=== PATIENT | male | born 1945 | race Caucasian/White ===

== ENCOUNTER 2025-05-27 14:58 | Inpatient (IN) | payer MEDICARE ==
[~2025-05-27] VITALS: Ht 172.7 cm; Wt 78.9 kg
[2025-05-27] MEDS: IV NS 0.9% 1,000 ML BAG IV ONE (15:30)
[2025-05-27 15:32] LABS: PLATELET COUNT (AUTO) 237 K/uL (150-450); RED BLOOD CELL COUNT(AUTO) 4.30 MIL/uL (4.5-6.0); RED CELL DISTRIBUTION WIDTH 15.0 % (11.5-15.0); WHITE BLOOD COUNT (AUTO) 13.4 K/uL (4.3-11.0)
[2025-05-27 15:42] LABS: CALCIUM, SERUM 8.0 mg/dL (8.5-10.1); CREATININE 1.2 mg/dL (0.6-1.3); SERUM AMMONIA 22 umol/L (11-32); SODIUM SERUM 124 mmol/L (136-145); UREA NITROGEN, BLOOD 12 mg/dL (7-18)
[2025-05-27 15:42] LABS: APPEARANCE,URINE CLEAR (CLEAR); BLOOD, URINE NEGATIVE Ery/uL (NEGATIVE); LEUKOCYTE ESTERASE ,URINE NEGATIVE (NEGATIVE); NITRITE, URINE NEGATIVE (NEGATIVE); UGLUCOSE NEGATIVE (NEGATIVE)
[2025-05-27] MEDS ORDERED: PANTOPRAZOLE 40 MG VIAL ONE (15:44)
[2025-05-27 15:47] LABS: ALCOHOL, BLOOD < 3 mg/dL (0-10); ASPARTATE AMINOTRANSFERASE 31 U/L (15-37); TOTAL PROTEIN, SERUM 6.5 g/dL (6.4-8.2)
[2025-05-27 15:48] LABS: INR 1.17 (0.91-1.10)
[2025-05-27 15:49] LABS: AMPHETAMINE, URINE NEGATIVE (NEGATIVE); BARBITURATE, URINE NEGATIVE (NEGATIVE); COCCAINE, URINE NEGATIVE (NEGATIVE); OPIATE, URINE NEGATIVE (NEGATIVE)
[2025-05-27] MEDS: PANTOPRAZOLE 40 MG VIAL IV ONE (15:49)
[2025-05-27 15:52] LABS: BENZODIAZEPINE, URINE POSITIVE (NEGATIVE); CANNABINOID, URINE POSITIVE (NEGATIVE)
[2025-05-27 16:12] LABS: ADD URINE CULTURE YES; SQUAMOUS EPITHELIAL CELL,UR 0-2 /HPF (None Seen)
[2025-05-27 16:23] LABS: BAND % (MANUAL) 1 % (0.0-5.0); LYMPHOCYTES % (MANUAL) 1 % (16-48); MONOCYTES % (MANUAL) 2 % (0-11.0); NEUTROPHILS % (MANUAL) 96 (42-76); PLATELET ESTIMATE ADEQUATE
[2025-05-27] MEDS ORDERED: MAG HYDROX/AL HYDROX/SIMETH 30 ML UDC PO PRN (21:00)
[2025-05-27] MEDS ORDERED: MAGNESIUM HYDROXIDE 30 ML UDC PO PRN (21:00)
[2025-05-27] MEDS ORDERED: ONDANSETRON HCL/PF 4 MG/2 ML VIAL IVP PRN (21:00)
[2025-05-27] MEDS ORDERED: Z GUARD REMEDY 4 OZ OINT TP PRN (21:00)
[2025-05-27 21:25] VITALS: BP 112/84; TEMP 97.9; O2SAT 100
[2025-05-27] MEDS: IV NS 0.9% 1,000 ML IV PRN (22:10)
[2025-05-27] MEDS: PANTOPRAZOLE 40 MG VIAL IV SCH (22:11)
[2025-05-27] MEDS: ALPRAZOLAM 0.5 MG TABLET PO PRN (23:59)
[2025-05-28] VITALS (9 sets, daily range): BP systolic 98–135; BP diastolic 70–92; TEMP 97.5–99.1; O2SAT 97–100
[2025-05-28] MEDS: Thiamine 100 MG in IV D5W 50 ML IV SCH (00:26)
[2025-05-28 07:24] LABS: PLATELET COUNT (AUTO) 173 K/uL (150-450); RED BLOOD CELL COUNT(AUTO) 3.84 MIL/uL (4.5-6.0); RED CELL DISTRIBUTION WIDTH 15.1 % (11.5-15.0); WHITE BLOOD COUNT (AUTO) 9.9 K/uL (4.3-11.0)
[2025-05-28 07:43] LABS: CALCIUM, SERUM 7.6 mg/dL (8.5-10.1); CREATININE 1.1 mg/dL (0.6-1.3); PHOSPHORUS 3.2 mg/dL (2.5-4.9); SODIUM SERUM 128.0 mmol/L (136-145); UREA NITROGEN, BLOOD 14.0 mg/dL (7-18)
[2025-05-28] MEDS ORDERED: ALPR0.255 PO (07:46)
[2025-05-28] MEDS ORDERED: FAMO40TA7 PO (07:46)
[2025-05-28] MEDS ORDERED: MELO-107 PO (07:46)
[2025-05-28] MEDS ORDERED: LOSA100T31 PO (07:46)
[2025-05-28] MEDS ORDERED: APIX5TAB PO (07:46)
[2025-05-28] MEDS: PANTOPRAZOLE 40 MG/PACK PACK PO SCH (08:02)
[2025-05-28 08:11] LABS: LDL 29.0 mg/dL (0-99)
[2025-05-28] MEDS: CHLORDIAZEPOXIDE HCL 25 MG CAPSULE PO SCH (11:48)
[2025-05-28] MEDS: APIXABAN 5 MG TABLET PO SCH (16:32)
[2025-05-28 17:22] LABS: IRON, SERUM 14.0 ug/dl (50-175)
[2025-05-29] VITALS: BP 111/80; TEMP 98.1; O2SAT 95
[2025-05-29] MEDS: CHLORDIAZEPOXIDE HCL 25 MG CAPSULE PO PRN (00:46)
[2025-05-29 04:00] VITALS: BP 123/85; TEMP 98.6; O2SAT 96
[2025-05-29] MEDS: ENOXAPARIN SODIUM 80 MG/0.8 ML DISP.SYRIN SQ SCH (05:18)
[2025-05-29 07:03] LABS: PLATELET COUNT (AUTO) 210 K/uL (150-450); RED BLOOD CELL COUNT(AUTO) 3.68 MIL/uL (4.5-6.0); RED CELL DISTRIBUTION WIDTH 15.3 % (11.5-15.0); WHITE BLOOD COUNT (AUTO) 7.8 K/uL (4.3-11.0)
[2025-05-29 07:12] LABS: CALCIUM, SERUM 7.7 mg/dL (8.5-10.1); CREATININE 0.9 mg/dL (0.6-1.3); FIBRINOGEN ACTIVITY 469.0 Mg/dL (213-485); INR 1.08 (0.91-1.10); PHOSPHORUS 2.9 mg/dL (2.5-4.9); SODIUM SERUM 128.0 mmol/L (136-145); UREA NITROGEN, BLOOD 13.0 mg/dL (7-18)
[2025-05-29 08:00] VITALS: BP 125/85; TEMP 99.9; O2SAT 96
[2025-05-29 08:09] LABS: IMMUNOGLOBULIN A, SERUM 168 mg/dL (61-437); IMMUNOGLOBULIN M, SERUM 68 mg/dL (15-143)
[2025-05-29 09:11] LABS: FREE KAPPA LT CHAINS SERUM 41.0 mg/L (3.3-19.4); FREE LAMBDA LT CHAIN SERUM 32.0 mg/L (5.7-26.3); KAPPA/LAMBDA RATIO SERUM 1.28 (0.26-1.65)
[2025-05-29] MEDS: ACETAMINOPHEN 325 MG TABLET PO PRN (09:29)
[2025-05-29] MEDS: ALPRAZOLAM 0.25 MG TABLET PO PRN (09:29)
[2025-05-29] MEDS: LOSARTAN POTASSIUM 50 MG TABLET PO SCH (09:30)
[2025-05-29 10:07] LABS: FOLIC ACID 12.2 ng/mL (>3.0)
[2025-05-29 11:08] LABS: AFP, TUMOR MARKER <1.8 ng/mL (0.0-8.4); CARBOHYDRATE AG 19-9 33 U/mL (0-35); CARCINOEMBRYONIC ANTIGEN (CEA) 2.3 ng/mL (0.0-4.7)
[2025-05-29] MEDS ORDERED: CT SWABBABLE VALVE TRANS SET 1 EA INFUS.SET MC ONE (11:31)
[2025-05-29] MEDS ORDERED: IOHEXOL-350 100 ML VIAL IV ONE (11:31)
[2025-05-29] MEDS ORDERED: IV NS 0.9% 250 ML IV ONE (11:31)
[2025-05-29] MEDS: SOD FERRIC GLUC 125 MG in IV NS 0.9% 100 ML IV SCH (15:11)
[2025-05-29 16:00] VITALS: BP 133/89; TEMP 98.1; O2SAT 100
[2025-05-29] MEDS: IV LR 500 ML IV PRN (17:47)
[2025-05-29 20:00] VITALS: BP 140/93; TEMP 98.6; O2SAT 97
[2025-05-29 20:05] VITALS: BP_SYST 135; BP_SYST 136; BP_SYST 140; BP_DIAS 85; BP_DIAS 88; BP_DIAS 93
[2025-05-29] MEDS: THIAMINE HCL 100 MG TABLET PO SCH (21:09)
[2025-05-30] VITALS (10 sets, daily range): BP systolic 123–156; BP diastolic 87–94; TEMP 98.2–99.9; O2SAT 95–100
[2025-05-30] MEDS ORDERED: MEROPENEM 500 MG in IV NS 0.9% 50 ML IV SCH (08:00)
[2025-05-30 08:11] LABS: *SPE A/G RATIO 0.9 (0.7-1.7); *SPE ALBUMIN 2.8 g/dL (2.9-4.4); *SPE ALPHA-1-GLOBULIN 0.5 g/dL (0.0-0.4); *SPE ALPHA-2-GLOBULIN 0.8 g/dL (0.4-1.0); *SPE BETA GLOBULIN 0.8 g/dL (0.7-1.3); *SPE GLOBULIN, TOTAL 3.1 g/dL (2.2-3.9); *SPE M-SPIKE Not Observed g/dL (Not Observed); *SPE PROTEIN TOTAL 5.9 g/dL (6.0-8.5); *SPEGAMMA GLOBULIN 1.0 g/dL (0.4-1.8)
[2025-05-30] MEDS: SODIUM CHLORIDE 1000 MG TABLET PO SCH (10:28)
[2025-05-30 17:58] LABS: PLATELET COUNT (AUTO) 268 K/uL (150-450); RED BLOOD CELL COUNT(AUTO) 4.09 MIL/uL (4.5-6.0); RED CELL DISTRIBUTION WIDTH 15.3 % (11.5-15.0); WHITE BLOOD COUNT (AUTO) 9.7 K/uL (4.3-11.0)
[2025-05-30 18:28] LABS: ASPARTATE AMINOTRANSFERASE 21.0 U/L (15-37); CALCIUM, SERUM 8.0 mg/dL (8.5-10.1); CREATININE 1.2 mg/dL (0.6-1.3); PHOSPHORUS 3.2 mg/dL (2.5-4.9); SODIUM SERUM 130.0 mmol/L (136-145); TOTAL PROTEIN, SERUM 5.9 g/dL (6.4-8.2); UREA NITROGEN, BLOOD 13.0 mg/dL (7-18)
[2025-05-30] MEDS ORDERED: MEROPENEM 1 G VIAL IV ONE (21:24)
[2025-05-30] MEDS: MEROPENEM 1 G in IV NS 0.9% 100 ML IV ONE (21:53)
[2025-05-30] MEDS ORDERED: IV LR 1,000 ML IV PRN (23:18)
[2025-05-30] MEDS: IV LR 1000 ML 1,000 ML IV PRN (23:49)
[2025-05-31] VITALS: BP 137/97; TEMP 98.8; O2SAT 97
[2025-05-31 04:00] VITALS: BP 133/91; TEMP 98.2; O2SAT 97
[2025-05-31 07:05] LABS: PLATELET COUNT (AUTO) 268 K/uL (150-450); RED BLOOD CELL COUNT(AUTO) 3.94 MIL/uL (4.5-6.0); RED CELL DISTRIBUTION WIDTH 15.2 % (11.5-15.0); WHITE BLOOD COUNT (AUTO) 7.9 K/uL (4.3-11.0)
[2025-05-31 07:29] LABS: ASPARTATE AMINOTRANSFERASE 20.0 U/L (15-37); CALCIUM, SERUM 7.9 mg/dL (8.5-10.1); CREATININE 1.1 mg/dL (0.6-1.3); SODIUM SERUM 131.0 mmol/L (136-145); TOTAL PROTEIN, SERUM 5.6 g/dL (6.4-8.2); UREA NITROGEN, BLOOD 12.0 mg/dL (7-18)
[2025-05-31 08:00] VITALS: BP 147/101; TEMP 98.8; O2SAT 98
[2025-05-31] MEDS: MEROPENEM 1 G in IV NS 0.9% 100 ML IV SCH (08:05)
[2025-05-31 16:00] VITALS: BP 148/91; TEMP 100; O2SAT 97
[2025-05-31 20:00] VITALS: BP 149/94; TEMP 99.1; O2SAT 96
[2025-06-01 07:00] VITALS: BP_SYST 118; BP_SYST 152; BP_DIAS 78; BP_DIAS 94; TEMP 98.2; O2SAT 96; O2SAT 99
[2025-06-01 07:31] LABS: PLATELET COUNT (AUTO) 300 K/uL (150-450); RED BLOOD CELL COUNT(AUTO) 4.00 MIL/uL (4.5-6.0); RED CELL DISTRIBUTION WIDTH 15.3 % (11.5-15.0); WHITE BLOOD COUNT (AUTO) 6.9 K/uL (4.3-11.0)
[2025-06-01 07:56] LABS: ASPARTATE AMINOTRANSFERASE 25.0 U/L (15-37); CALCIUM, SERUM 7.6 mg/dL (8.5-10.1); CREATININE 1.0 mg/dL (0.6-1.3); SODIUM SERUM 131.0 mmol/L (136-145); TOTAL PROTEIN, SERUM 5.5 g/dL (6.4-8.2); UREA NITROGEN, BLOOD 10.0 mg/dL (7-18)
[2025-06-01] MEDS ORDERED: SODI100037 PO (11:24)
[2025-06-01 15:00] VITALS: BP 145/94; TEMP 98.8; O2SAT 97
[2025-06-01 20:00] VITALS: BP 124/93; TEMP 98.8; O2SAT 96
[2025-06-02 07:23] LABS: PLATELET COUNT (AUTO) 316 K/uL (150-450); RED BLOOD CELL COUNT(AUTO) 3.95 MIL/uL (4.5-6.0); RED CELL DISTRIBUTION WIDTH 15.3 % (11.5-15.0); WHITE BLOOD COUNT (AUTO) 5.6 K/uL (4.3-11.0)
[2025-06-02 07:51] LABS: ASPARTATE AMINOTRANSFERASE 26.0 U/L (15-37); CALCIUM, SERUM 7.7 mg/dL (8.5-10.1); CREATININE 0.9 mg/dL (0.6-1.3); PHOSPHORUS 2.6 mg/dL (2.5-4.9); SODIUM SERUM 130.0 mmol/L (136-145); TOTAL PROTEIN, SERUM 5.3 g/dL (6.4-8.2); UREA NITROGEN, BLOOD 12.0 mg/dL (7-18)
[2025-06-02 08:00] VITALS: BP 113/75; TEMP 98.2; O2SAT 94
[2025-06-02 08:18] VITALS: BP 113/75
== END 2025-06-02 12:00 | disposition home or self-care (01) | DRG 439 ==
LOC: ER 15:00 → TELE 20:55 → MED 05-31 10:37
PROVIDERS: ADMIT Nurse Practitioner Acute Care; ATTEND Nurse Practitioner Acute Care
DX: K85.91 Acute pancreatitis with uninfected necrosis, unspecified (principal); E87.1 Hypo-osmolality and hyponatremia; G90.89 Other disorders of autonomic nervous system; I48.0 Paroxysmal atrial fibrillation; D64.9 Anemia, unspecified; Z79.01 Long term (current) use of anticoagulants; I10 Essential (primary) hypertension; K86.3 Pseudocyst of pancreas; E86.0 Dehydration; R73.9 Hyperglycemia, unspecified; Z90.49 Acquired absence of other specified parts of digestive tract; E86.1 Hypovolemia; Z85.07 Personal history of malignant neoplasm of pancreas; M19.90 Unspecified osteoarthritis, unspecified site; Z96.653 Presence of artificial knee joint, bilateral; N20.0 Calculus of kidney; K86.1 Other chronic pancreatitis; E78.5 Hyperlipidemia, unspecified; Z98.84 Bariatric surgery status; K57.30 Diverticulosis of large intestine without perforation or abscess without bleeding; N40.0 Benign prostatic hyperplasia without lower urinary tract symptoms; Z90.411 Acquired partial absence of pancreas
CPT/HCPCS: 36415; 70450-TC; 71045-TC; 71260-TC; 72125-TC; 80048-TC; 80053-TC; 80061-TC; 80076-TC; 81001; 82105; 82140-TC; 82378; 82607-TC; 82728-TC; 82784; 82962-TC; 83540-TC; 83615-TC; 83690-TC; 83735-TC; 84100-TC; 84155; 84165; 84443-TC; 84484-TC; 84550-TC; 85025-TC; 85027-TC; 85396; 85730-TC; 86140-TC; 86301; 86334; 87086-TC; 93307-TC; 97110-TC; 97116-TC; 97530-TC; 97535-TC; A4223; G0378; G0480; J1650; J2185; J2470; J2916; J3411; J3490; J7030; J7050; J7060; J7120; Q9967